=== PATIENT | female | born 1990 | race Caucasian/White ===

== ENCOUNTER 2020-03-12 16:44 | Emergency (ER) | payer OTHER ==
[~2020-03-12] VITALS: Ht 154.9 cm; Wt 83.5 kg
[2020-03-12 17:55] VITALS: Ht 154.9 cm; Wt 83.5 kg
[2020-03-12 21:15] VITALS: BP 137/71
== END 2020-03-12 21:15 | disposition home or self-care (01) ==
LOC: ED 16:44
DX: S61.211A Laceration without foreign body of left index finger without damage to nail, initial encounter (principal); W26.0XXA Contact with knife, initial encounter; Y93.89 Activity, other specified; Y92.89 Other specified places as the place of occurrence of the external cause; Y99.8 Other external cause status
CPT/HCPCS: 90715; J2001